=== PATIENT | female | born 1960 | race Caucasian/White ===

== ENCOUNTER 2018-12-25 08:35 | Outpatient (REF) | payer MEDICAID, SELFPAY ==
[2018-12-25 12:55] LABS: ALT 29 U/L (12-78); AST 20 U/L (15-37); Albumin 4.2 g/dL (3.4-5.0); Alkaline Phosphatase 92 U/L (46-116); Anion Gap 12.8 mmol/L (3-11); BUN 13 mg/dL (7-18); Bilirubin, Total 0.2 mg/dL (0.2-1.0); CO2 24.2 mmol/L (21.0-32.0); CREATININE 0.98 mg/dL (0.55-1.02); Calcium 9.4 mg/dL (8.5-10.1); Chloride 104 mmol/L (98-107); Cholesterol 207 mg/dL (50-200); Estimated GFR 57.89 (mL/min/1.73m2); Glucose 104 mg/dL (70-100); HDL Cholesterol 55 mg/dL (40-60); LDL CHOLESTEROL 113 mg/dL (<100); Potassium 4.2 mmol/L (3.5-5.1); Sodium 141 mmol/L (136-145); TSH (W/Ref FT4) 1.76 uIU/mL (0.358-3.74); Total Protein 7.6 g/dL (6.4-8.2); Triglyceride 200 mg/dL (30-150)
== END 2018-12-25 08:55 ==
LOC: NCHCN 08:35
PROVIDERS: PCP Nurse Practitioner; Visit Provider Nurse Practitioner
DX: E78.5 Hyperlipidemia, unspecified (principal); F32.9 Major depressive disorder, single episode, unspecified
CPT/HCPCS: 80053; 80061; 83721; 84443

== ENCOUNTER 2019-10-07 13:24 | Outpatient (REF) | payer MEDICAID, SELFPAY ==
[2019-10-07 19:18] LABS: ALT 26 U/L (14-59); AST 22 U/L (15-37); Albumin 4.6 g/dL (3.4-5.0); Alkaline Phosphatase 84 U/L (46-116); Anion Gap 11.3 mmol/L (3-11); BUN 9 mg/dL (7-18); Bilirubin, Total 0.3 mg/dL (0.2-1.0); CO2 27.7 mmol/L (21.0-32.0); CREATININE 1.06 mg/dL (0.55-1.02); Calcium 9.3 mg/dL (8.5-10.1); Calculated LDL 115 mg/dL; Chloride 101 mmol/L (98-107); Cholesterol 212 mg/dL (<200); Estimated GFR 52.88 (mL/min/1.73m2); Glucose 99 mg/dL (74-106); HDL Cholesterol 55 mg/dL (40-60); Potassium 3.9 mmol/L (3.5-5.1); Sodium 140 mmol/L (136-145); TSH (W/Ref FT4) 1.63 uIU/mL (0.36-3.74); Total Protein 7.8 g/dL (6.4-8.2); Triglyceride 213 mg/dL (<150)
[2019-10-07 19:33] LABS: Vitamin D 25 Total 37.4 ng/ml (30-100)
== END 2019-10-07 13:44 ==
LOC: NCHCN 13:24
PROVIDERS: PCP Nurse Practitioner; Visit Provider Nurse Practitioner
DX: E78.1 Pure hyperglyceridemia (principal); E55.9 Vitamin D deficiency, unspecified; E78.5 Hyperlipidemia, unspecified; Z13.29 Encounter for screening for other suspected endocrine disorder
CPT/HCPCS: 80053; 80061; 82306; 84443

== ENCOUNTER 2020-02-26 10:55 | Outpatient (CLI) | payer MEDICAID, SELFPAY ==
--- NOTE | 2020-02-26 09:00 | DI.RAD_ITS ---
EXAM: XR SHOULDER RT COMPLETE 2+V CLINICAL HISTORY: pain in shoulder. TECHNIQUE: 2D digital imaging was performed. COMPARISON: No exams were available for comparison FINDINGS: Mild degenerative changes are seen at the acromioclavicular joint. The glenohumeral joint is well ma intained. The bones are normally mineralized. No acute fracture or dislocation is present. Dystrop hic calcifications are seen adjacent to the coracoid process. The soft tissues are otherwise unremar kable. IMPRESSION: Degenerative changes of the right shoulder. DATA REPOSITORY: RADIATION DOSE DELIVERED:
== END 2020-02-26 11:15 ==
PROVIDERS: PCP Nurse Practitioner; Referring Provider Nurse Practitioner; Visit Provider Student in an Organized Health Care Education/Training Program
DX: M25.511 Pain in right shoulder (principal); M19.011 Primary osteoarthritis, right shoulder
CPT/HCPCS: 73030

== ENCOUNTER 2020-06-30 10:56 | Outpatient (CLI) | payer MEDICAID, SELFPAY ==
--- NOTE | 2020-06-30 14:00 | DI.RAD_ITS ---
EXAM: XR SHOULDER LT COMPLETE 2+V CLINICAL HISTORY: left shoulder pain. TECHNIQUE: 2D digital imaging was performed. COMPARISON: CR LEFT SHOULDER COMPLETE from 12/13/2016 FINDINGS: BONES: No acute fracture is present. No bony destructive lesion is seen. JOINTS: No dislocation present. There is mild spurring at the glenoid and undersurface of the acromi on. SOFT TISSUE: A rounded calcification is again near the greater tuberosity consistent with calcific te ndinosis. IMPRESSION: Stable mild degenerative changes and calcific tendinosis. DATA REPOSITORY: RADIATION DOSE DELIVERED:
== END 2020-06-30 11:16 ==
PROVIDERS: PCP Nurse Practitioner; Visit Provider Student in an Organized Health Care Education/Training Program
DX: M19.012 Primary osteoarthritis, left shoulder (principal); M75.32 Calcific tendinitis of left shoulder
CPT/HCPCS: 73030

== ENCOUNTER 2021-03-02 13:59 | Outpatient (CLI) | payer MEDICAID, SELFPAY ==
--- NOTE | 2021-03-02 18:15 | DI.RAD_ITS ---
Exam(s) XR HAND LT COMPLETE EXAM: XR HAND LT COMPLETE CLINICAL HISTORY: left wrist and hand closed in door, pain, injury. TECHNIQUE: 2D digital imaging was performed. COMPARISON: No exams were available for comparison FINDINGS: There is no evidence of fracture or dislocation. No osseous lesions. Tiny 1 millimeter calcificatio n is seen in the soft tissues dorsal to the DIP joint of the 2nd-index finger. Also degenerative paige nges at the articulation between the thumb metacarpal and trapezium, these best seen on the oblique v iews. IMPRESSION: DATA REPOSITORY: RADIATION DOSE DELIVERED:
--- NOTE | 2021-03-02 18:15 | DI.RAD_ITS ---
Exam(s) XR WRIST LT COMP NAVICULAR EXAM: XR WRIST LT COMP NAVICULAR CLINICAL HISTORY: wrist and hand closed in door, injury. TECHNIQUE: 2D digital imaging was performed. COMPARISON: No exams were available for comparison FINDINGS: There is no evidence of acute fracture or carpal dislocation. Scaphoid appears unremarkable. No sig nificant ulnar variance. There are moderate degenerative changes at the articulation between the keshia mb metacarpal and trapezium. IMPRESSION: DATA REPOSITORY: RADIATION DOSE DELIVERED:
--- NOTE | 2021-03-02 19:18 | DI.VRAD_ITS ---
PROCEDURE INFORMATION: Exam: XR Left Hand Exam date and time: 03/02/2021 6:18 PM Age: 60 years old Clinical indication: Other: Left wrist and hand closed in door, pain, injury TECHNIQUE: Imaging protocol: XR Left hand. Views: 3 or more views. COMPARISON: No relevant prior studies available. FINDINGS: Bones/joints: There is a linear lucency through the shaft the 1st distal phalanx (series 1) and through the base the 4th distal phalanx (series 3). These could represent variations in trabeculation but should be correlated with concern for nondisplaced fractures. Soft tissues: There is a punctate radiodensity in the soft tissues adjacent to the distal aspect of the 2nd proximal phalanx, ulnar side (series 1) . A 2nd punctate radiodensity is identified in the dorsal soft tissues at the level of the 2nd DIP joint (series 3). These could represent soft tissue calcifications but should be correlated with any concern for foreign bodies. IMPRESSION: 1. There is a linear lucency through the shaft the 1st distal phalanx (series 1) and through the base the 4th distal phalanx (series 3). These could represent variations in trabeculation but should be correlated with concern for nondisplaced fractures. 2. Punctate radiodensities in the 2nd digit as described. These could represent soft tissue calcifications but should be correlated with any concern for foreign bodies. Other findings/details as above. Dictated and Authenticated by: Leelee Mueller MD. Ordering:RADHA Howell MD
--- NOTE | 2021-03-02 19:24 | DI.VRAD_ITS ---
PROCEDURE INFORMATION: Exam: XR Left Wrist Exam date and time: 03/02/2021 6:18 PM Age: 60 years old Clinical indication: Other: Wrist and hand closed in door, injury TECHNIQUE: Imaging protocol: XR Left wrist. Views: 3 or more views. COMPARISON: No relevant prior studies available. FINDINGS: Bones/joints: Degenerative changes are noted at 1st carpometacarpal joint. Seen only on series 2 is a vertical linear lucency in the ulnar aspect of the trapezium. This is favored to be secondary to superimposition of structures but should be correlated with any concern for subtle nondisplaced fracture. Soft tissues: Unremarkable. IMPRESSION: 1.Seen only on series 2 is a vertical linear lucency in the ulnar aspect of the trapezium. This is favored to be secondary to superimposition of structures but should be correlated with any concern for subtle nondisplaced fracture. Dictated and Authenticated by: Leelee Mueller MD. Ordering:RADHA Howell MD
== END 2021-03-02 14:19 ==
PROVIDERS: PCP Nurse Practitioner; Visit Provider Physician Assistant
DX: S69.92XA Unspecified injury of left wrist, hand and finger(s), initial encounter (principal); W23.0XXA Caught, crushed, jammed, or pinched between moving objects, initial encounter
CPT/HCPCS: 73110; 73130

== ENCOUNTER 2021-03-15 01:47 | Outpatient (CLI) | payer MEDICAID, SELFPAY ==
--- NOTE | 2021-03-15 09:00 | DI.RAD_ITS ---
Exam(s) XR WRIST LT COMPLETE EXAM: XR WRIST LT COMPLETE CLINICAL HISTORY: 10 persistant pain, c/o nondisplac fx, pain, M25.532. TECHNIQUE: 2D digital imaging was performed. COMPARISON: Prior x-rays 03/02/2021 FINDINGS: No evidence of acute fracture or dislocation. No significant ulnar variance. Bone density is normal . There are degenerative changes at the articulation between the thumb metacarpal and trapezium agai n noted. IMPRESSION: No fracture evident. DATA REPOSITORY: RADIATION DOSE DELIVERED:
== END 2021-03-15 02:07 ==
PROVIDERS: PCP Nurse Practitioner; Visit Provider Physician Assistant
DX: M25.532 Pain in left wrist (principal)
CPT/HCPCS: 73110

== ENCOUNTER 2024-09-27 09:40 | Emergency (ER) | payer MEDICARE, MEDICAID, SELFPAY ==
[2024-09-27 09:42] VITALS: BP 177/97; PULSE 90; RESP 18; O2SAT 97
--- NOTE | 2024-09-27 10:15 | DI.RAD_ITS ---
Exam(s) XR FEMUR RT XR HIP RT COMPLETE AP PELVIS EXAM: XR HIP RT COMPLETE AP PELVIS and XR femur RT CLINICAL HISTORY: pain. TECHNIQUE: 2D digital imaging was performed of the right hip and femur. Six images were obtained. AP pelvis and lateral right hip views were obtained. COMPARISON: There are no priors for comparison. FINDINGS: BONES: No acute fracture is present. No bony destructive lesion is seen. JOINTS: No dislocation present. SOFT TISSUE: Atherosclerotic calcification is present. IMPRESSION: No acute fracture or dislocation. DATA REPOSITORY: RADIATION DOSE DELIVERED:
--- NOTE | 2024-09-27 10:19 | ED.GENADUL_ITS ---
Discharge Plan Disposition Patient Disposition: Home Condition: Stable Discharge Details Clinical Impression: Osteoarthritis of right hip Primary Care Provider: Unknown,Unknown ED Provider: James Grossman Home Meds and New Rx's Prescriptions: Continued ibuprofen 600 MG tablet 600 mg PO Q6H PRN Qty: 90 fluoxetine 20 MG capsule 20 mg PO QAM lovastatin 40 MG tablet 40 mg PO DAILY albuterol sulfate [ProAir HFA] 8.5 GM HFA aerosol inhaler 2 puff Inhalation QID PRN PRN (Reason: Dyspnea) Qty: 1 0RF gabapentin 100 MG capsule 100 mg PO BID cholecalciferol (vitamin D3) 1,000 UNIT tablet 1,000 unit PO DAILY Discharge Instructions Instructions: Osteoarthritis, Hip pain in adults Additional Instructions: No evidence of blood clot or bony lesion. Discomfort appears to be coming from your hip, likely osteoarthritis. You may continue NSAIDs as directed. Rest, gentle stretching, activity modification, cool and/or warm compresses every 2 hours for 20 minutes. You may also use [id number]-[id number] Tylenol. Please watch for new or worsening symptoms and return immediately to the ER. Referral has been given to her orthopedic office. They should be reaching out to you sometime next week, if you do not hear from them, please contact their office. Referrals: Ike Phelan MD [ [facility] STAFF PHYSICIAN] - [facility] General Mode of arrival: ambulatory . Date/Time Provider Initiated Documentation: 09/27/24 09:56 . Limitations to Documentation: no limitations . Information obtained by: patient . History of Present Illness 63 year old F presents to the emergency department with the chief complaint of Left leg pain, described as moderate, with intensity rated at 7. Quality is described as aching and sharp, and is localized to the left and lower extremity. Patient reports no radiation. Patient started experiencing this week(s) (1) and it has been constant. Immobilization improves symptom(s), Movement worsens sym ptoms . Patient notes no other symptoms.. Patient did receive the following treatments prior to arrival, NSAID Related Data Home Medications ?Medication ?Instructions ?Recorded ?Confirmed fluoxetine 20 mg capsule 20 mg PO QAM 10/15/13 09/27/24 albuterol sulfate 90 mcg/actuation 2 puff inhalation QID PRN PRN 06/04/15 09/27/24 aerosol inhaler (ProAir HFA) Dyspnea ##1 lovastatin 40 mg tablet 40 mg PO DAILY 06/04/15 09/27/24 ibuprofen 600 mg tablet 600 mg PO Q6H PRN #90 tab-caps 12/15/15 09/27/24 cholecalciferol (vitamin D3) 25 1,000 unit PO DAILY 04/02/18 09/27/24 mcg (1,000 unit) tablet gabapentin 100 mg capsule 100 mg PO BID 04/02/18 09/27/24 Previous Rx's ?Medication ?Instructions ?Recorded albuterol sulfate 90 mcg/actuation 2 puff inhalation QID PRN PRN 06/04/15 aerosol inhaler (ProAir HFA) Dyspnea ##1 Allergies Allergy/AdvReac Type Severity Reaction Status Date / Time No Known Allergies Allergy Verified 09/27/24 09:47 General Stated Complaint: Nk/Back Pain LUIS DANIEL: 4 Review of Systems Constitutional Constitutional: Denies chills and Denies fever(s) Cardiovascular Cardiovascular: Denies chest pain and Denies dyspnea Respiratory Respiratory: Denies cough and Denies dyspnea Gastrointestinal Gastrointestinal: Denies abdominal pain Musculoskeletal Musculoskeletal: Denies back pain, Denies numbness and Denies tingling Integumentary/Breasts Skin/Breast: Denies rash Neurologic Neurologic: Denies numbness and Denies tingling Exam Const General: cooperative, healthy appearing, comfortable and no acute distress Orientation: alert and awake [facility] Head: normal to inspection, normocephalic and atraumatic Mouth: moist mucous membranes Eyes General: appearance normal, both eyes and all related structures Conjunctivae: conjunctivae normal Neck Neck: normal visual inspection, full ROM, trachea midline and supple Resp Effort & Inspection: normal respiratory effort and able to speak in complete sentences Auscultation: clear to auscultation bilaterally Cardio Rate: regular rate Rhythm: regular rhythm GI Palpation: soft, not firm, no guarding and nontender Back/Spine/Pelvis Back: no CVA tenderness and No back tenderness Skin General skin exam: no rashes or lesions noted Neuro General: patient alert, patient awake, moves all extremities and no focal motor deficits Cognition: normal cognition Speech: speech normal Gait: antalgic (Minimally) Sensory Exam: no sensory deficits noted Extrem General: normal to inspection, full ROM, capillary refill normal and no calf tenderness Right lower extremity: normal to inspection, full ROM and normal capillary refill Other: Right hip exam: Skin is intact without erythema, ecchymosis, swelling, deformity. Patient able to actively flex their hip greater than 90 degrees with mild anterior discomfort. Pt able to demonstrate nonirritable and smooth internal and external rotation without discomfort. While seated, able to hold leg in hip flexion against light resistance without discomfort, mild discomfort to moderate resistance. No pain over the greater trochanter or IT band. Sensation is intact throughout. Straight leg raise elicits mild back discomfort as well as anterior hip and thigh discomfort. Stinchfield testing elicits moderate anterior hip and thigh discomfort. No Trendelenburg gait. No discomfort to direct palpation about the quad. Significant discomfort about the sciatic notch. Knee, calf, foot unremarkable. Calf is soft, nontender, easily compressed. Normal pedal pulse and capillary refill. Negative Homans' sign Psych Appearance: grossly normal Mental Status: mental status grossly normal Course Vital Signs Vital signs: Vital Signs Pulse 90 09/27/24 09:42 Respiratory Rate 18 09/27/24 09:42 Blood Pressure 177/97 H 09/27/24 09:42 Pulse Oximetry 97 09/27/24 09:42 Pulse 90 09/27/24 09:42 Respiratory Rate 18 09/27/24 09:42 Blood Pressure 177/97 H 09/27/24 09:42 Blood Pressure Position Sitting 09/27/24 09:42 Pulse Oximetry 97 09/27/24 09:42 Oxygen Delivery Method Room Air 09/27/24 09:42 Oxygen Flow Rate 0 09/27/24 09:42 Pain Level 5 09/27/24 09:58 Medical Decision Making This is a 63-year-old female reporting right thigh and hip pain that began about 1 week ago. Denies any obvious trauma or overuse. States the discomfort began more so in her thigh and was worse with movement and bearing weight, seem to radiate up to her anterior hip. Then about 3 or 4 days ago she noticed some discomfort about her deep right buttocks. States it feels somewhat muscular in nature. Has never had the symptoms previously. Patient has not had a PCP in over 3 years, does have transportation issues. I have asked that care management come speak with the patient regarding her resource help establish PCP. Examination is most consistent with right hip osteoarthritis. Will obtain x-rays of the right hip and femur and reassess. Care management did come talk with the patient regarding a PCP and additional community resources. Patient is very thankful. Right femur and hip x-rays were ordered and reviewed, no acute fracture, dislo cation, or bony lesions. Degenerative changes noted. Discussed in length with patient. Right hip pain which is described as anterior pain into her thigh as well as deep buttocks pain. Clinically no evidence of DVT. Neuro, vascular, tendon intact. No evidence of trochanteric bursitis. While there could be some component of ischial bursitis, testing appears more so intra-articular, consistent with osteoarthritis. Recommend orthopedic referral and follow-up, could consider intra-articular injection. In the meantime we discussed activity modification, continuing oral NSAIDs, gentle stretching, cool and/or warm compresses. Patient encouraged to watch for new or worsening symptoms and return immediately to the ER. Standard discharge and return precautions were provided. Patient understands, is agreeable to this plan, and has no additional questions or concerns upon discharge. This documentation was generated using [employer] dictation system, please disregard any oddities of phrase or misspellings. Medical Records Medical records reviewed: Yes I reviewed the patient's medical records. Quality:SDOH Health Related Social Needs: No Data to Display PFSH All Active Problems (Updated 09/27/24 @ 11:47 by BRIDGETT Garzon) Osteoarthritis of right hip (Acute) Calcific tendinitis of left shoulder (Acute) Bilateral shoulder bursitis (Acute) Tendinopathy of left biceps (Acute) No-show for appointment (Acute) Tendinitis of long head of biceps brachii of both shoulders (Acute) Medical History Adhesive capsulitis of right shoulder Impingement syndrome of right shoulder Bursitis of right shoulder Social History Smoking/Tobacco Use Status: Current every day Smoking risk assessment performed?: Yes Alcohol Intake: never Drug use: Occasionally Substance use type: marijuana Details: Pt states she smokes marijuana occasionally 09/27/24 Current gender identity: female Do you feel safe at home: Yes Do you feel safe in your relationship?: Yes
[2024-09-27 11:58] VITALS: BP 172/80; PULSE 73; RESP 16; O2SAT 98
--- NOTE | 2024-09-27 13:23 | CMPROGNOTE_ITS ---
Date of service: 09/27/24 Time of Service: 13:30 Care Management Progress Note Progress Note Text Progress Note Text: CM met with Bernice in the ED, at the provider's request. She presented for pain in her leg, and stated that she is concerned for a DVT. CM was engaged due to barriers with transportation, which has prevented her from remaining established with a PCP. Bernice was sitting up on the bed in the ED room when CM met with her. She was pleasant and engaged well in conversation. She stated that she had covid a few years ago, and has been experiencing symptoms since then, including a 60 pound weight loss (in three years), which was unintentional. She stated that she lives in a single family home in [place] [facility] [place] (near [place]) that she and her , Bryan, rent equipment operator intermodal yard. She reported that their son, Guillermo, has been staying with them recently. They have three children; Guillermo, Ann, and another son whom she stated is not close with her. She stated that her is not nice, and further explained that is verbally mean, but not physica lly. CM asked about her safety at home, and she reported that she feels safe, and declined additional support, stating that he has been like this for several years, which she attributes to a new medication he has been taking. Bernice stated that her has a vehicle, but that he is not always able to drive her to appointments. He works seasonally (December-June), and that she tried to make her appointments during the winter months, but she has missed too many, so now she is no longer an established patient at [facility]. She stated that [facility] will not provide free rides because there is a car registered to their home. Bernice reported that when she was seeing her PCP regularly, she was taking an anti depressant, which she felt was helpful. She does not have a therapist currently, but is interested in one, as she stated that she feels isolated at home, and expressed gratitude for having someone to talk with today. GONZALEZ sent referrals to [facility] and [facility] to help connect Bernice to services in the community. A referral was sent to the rn on site provider for a hospital follow up appointment, at which she can elect to establish care. GONZALEZ discussed these referrals with Bernice, who was happy to have the support, as she feels it is important to start prioritizing herself. Social Determinants of Health Screening Will the Patient Participate in the Screening?: Unable to obtain
== END 2024-09-27 12:00 | disposition home or self-care (01) ==
PROVIDERS: Emergency Provider Physician Assistant
DX: M79.604 Pain in right leg (principal); M16.11 Unilateral primary osteoarthritis, right hip
CPT/HCPCS: 73552; 99284; 73502; 99283

== ENCOUNTER 2024-11-13 14:27 | Emergency (ER) | payer MEDICARE, MEDICAID, SELFPAY ==
[2024-11-13 14:51] VITALS: BP 128/68; PULSE 70; RESP 20; TEMP 37.1; O2SAT 95
--- NOTE | 2024-11-13 15:30 | DI.RAD_ITS ---
Exam(s) XR CHEST 2V PA LATERAL EXAM: XR CHEST 2V PA LATERAL CLINICAL HISTORY: Eval PNA, productive cough TECHNIQUE: 2D digital imaging was performed of the chest. Two images were obtained. PA and lateral views were obtained. COMPARISON: CR CHEST 2 VIEWS PA,LAT from 06/04/2015 CR LEFT SHOULDER COMPLETE from 12/13/2016 FINDINGS: MEDIASTINUM: Normal. HEART: Normal. PULMONARY VASCULATURE: Normal. LUNGS: No focal consolidating infiltrates are present. PLEURAL SPACE: No pleural effusion or pneumothorax. BONE:Within normal limits for the patient's age. OTHER FINDINGS:Normal. IMPRESSION: No acute pulmonary findings. DATA REPOSITORY: RADIATION DOSE DELIVERED:
--- NOTE | 2024-11-13 16:39 | ED.GENADUL_ITS ---
Discharge Plan Disposition Patient Disposition: Home Condition: Stable Discharge Details Clinical Impression: URI (upper respiratory infection) Primary Care Provider: Unknown,Unknown ED Provider: Elizabeth Espinosa Home Meds and New Rx's Prescriptions: New benzonatate 100 mg capsule 100 mg PO TID PRNQty: 14 0RF Discharge Instructions Instructions: Viral Upper Respiratory Infection, Adult (DC) Additional Instructions: You were seen in the emergency department today for evaluation of shortness of breath and cough. In our department you do full physical examination performed, had an x-ray that did not show any sign of pneumonia or other abnormalities to explain your symptoms. As we discussed, your symptoms are most concerning for influenza, especially since your family was sick with this virus a few weeks ago. Unfortunately, the medication that we use for influenza should be started within 2 days of symptoms, and as you have been sick for about a week it is li rafi not to have any significant benefit. I do recommend that you continue to use Tylenol (also known as acetaminophen) and ibuprofen for management of bodyaches, and I prescribed you a course of medication called Tessalon Perles which you can use for cough. Please follow-up with your primary care provider in the next few days to discuss this visit and any symptoms that change, worsen, or persist. Thank you for allowing us to be part of your care. HPI General Mode of arrival: ambulatory . Date/Time Provider Initiated Documentation: 11/13/24 15:21 . Limitations to Documentation: no limitations . Information obtained by: patient, family and old records reviewed . HPI Narrative: HPI: This is a 63-year-old female patient without significant past medical history presenting for evaluation of shortness of breath and cough. The patient has been sick for 1 week, her son and were both sick with influenza A a few weeks ago and she is concerned that she caught that from them. She states that she had been using [id number]-[id number] cough syrup to good effect for the first few days, but has developed worsening cough productive of clear to white sputum, shortness of breath especially after coughing or with exertion, and bodyaches. She sought care at the urgent care, who heard some crackles in her left base and were concerned for pneumonia. She was sent here for further evaluation. The patient reports that she has not had a fever, has been tolerating fluids but has not had much of an appetite. She has no personal history of cardiac disease, airway disease. Exam: Gen: Awake and alert, in no apparent distress HEENT: Non-icteric sclera Neck: Supple Lungs: No apparent respiratory distress at rest, does have some transient tachypnea after coughing spells. Lung sounds clear and equal bilaterally, no wheezes, rhonchi, rales CV: Appears well perfused, heart with regular rate and rhythm Abdomen: Non-distended MSK: Moves 4 extremities without apparent limitation in ROM, no peripheral edema Skin: Visualized skin without rashes, cyanosis. Neuro: Normal Gait, no obvious focal deficits or facial asymmetry. Speaks in full, clear sentences. Psych: Appropriate for situation. MDM: This is a 63-year-old female patient presenting for evaluation of cough and bodyaches with shortness of breath. Differential includes but is not limited to viral upper respiratory infection, bronchitis, pneumonia, no evidence on physical examination for reactive airway disease exacerbation, fluid overload such as pulmonary edema or pleural effusion. The patient symptoms are quite infectious sounding, and less typical for pulmonary embolism. She also reassuringly has no tachycardia, hypoxia, or DVT symptoms. No chest pain to suggest ACS. We will obtain an x-ray. At this time I do not see indication to proceed with laboratory studies given her hemodynamic stability and her ability to tolerate oral liquids ED Course: X-ray reviewed by myself, showing no focal infiltrates or other concerning findings to explain her symptoms. Given the duration of symptoms I did offer the patient the choice of proceeding with viral swab, and at this time she would like to hold off given her clear exposure history and the lack of treatment options available given the duration of symptoms. I did provide her with a prescription for Tessalon Perles, recommended Tylenol and ibuprofen for ongoing symptomatic management, and follow-up with her primary care provider for reassessment in the outpatient environment. At this time, the patient has had a full medical evaluation and is safe for discharge to home. They are hemodynamically stable, ambulatory, and tolerating PO. They are understanding of the follow-up plan and return precautions. They left our facility without incident. Elizabeth Espinosa MD Related Data Home Medications ?Medication ?Instructions ?Recorded ?Confirmed benzonatate 100 mg capsule 100 mg PO TID PRN #14 caps 11/13/24 Previous Rx's ?Medication ?Instructions ?Recorded benzonatate 100 mg capsule 100 mg PO TID PRN #14 caps 11/13/24 Allergies Allergy/AdvReac Type Severity Reaction Status Date / Time No Known Allergies Allergy Verified 11/13/24 14:55 General Stated Complaint: RespSymp LUIS DANIEL: 4 Course Vital Signs Vital signs: Vital Signs Temperature 37.1 C 11/13/24 14:51 Pulse 70 11/13/24 14:51 Respiratory Rate 20 11/13/24 14:51 Blood Pressure 128/68 11/13/24 14:51 Pulse Oximetry 95 11/13/24 14:51 Temperature 37.1 C 11/13/24 14:51 Temperature Source Oral 11/13/24 14:51 Pulse 70 11/13/24 14:51 Respiratory Rate 20 11/13/24 14:51 Blood Pressure 128/68 11/13/24 14:51 Blood Pressure Position Sitting 11/13/24 14:51 Pulse Oximetry 95 11/13/24 14:51 Oxygen Delivery Method Room Air 11/13/24 14:51 Oxygen Flow Rate 0 11/13/24 14:51 Pain Level 10 11/13/24 14:51 Medical Decision Making Quality:SDOH Health Related Social Needs: No Data to Display PFSH All Active Problems (Updated 11/13/24 @ 16:40 by Elizabeth Espinosa MD) URI (upper respiratory infection) (Acute) Calcific tendinitis of left shoulder (Acute) Bilateral shoulder bursitis (Acute) Tendinopathy of left biceps (Acute) No-show for appointment (Acute) Tendinitis of long head of biceps brachii of both shoulders (Acute) Medical History Adhesive capsulitis of right shoulder Impingement syndrome of right shoulder Bursitis of right shoulder Social History Smoking/Tobacco Use Status: Current every day Smoking risk assessment performed?: Yes Alcohol Intake: never Drug use: Occasionally Substance use type: marijuana Details: Pt states she smokes marijuana occasionally 09/27/24 Current gender identity: female Do you feel safe at home: Yes Do you feel safe in your relationship?: Yes
== END 2024-11-13 17:02 | disposition home or self-care (01) ==
PROVIDERS: Emergency Provider Emergency Medicine
DX: J06.9 Acute upper respiratory infection, unspecified (principal)
CPT/HCPCS: 99283; 71046

== ENCOUNTER 2025-01-13 00:06 | Outpatient (CLI) | payer MEDICARE, MEDICAID, SELFPAY ==
--- NOTE | 2025-01-13 08:41 | DI.CTLCSR_ITS ---
Exam(s) CT CHEST LUNG CANCER SCREEN EXAM: CT CHEST LUNG CANCER SCREEN CLINICAL HISTORY: Screening for lung cancer,cigarette smoker, F17.210 TECHNIQUE: Imaging Protocol: Axial computed tomography images with coronal and sagittal reformatted images were created and reviewed. Lung Computer Aided Detection (CAD) was utilized. COMPARISON: CT ABD PELVIS WITH CONTRAST from 05/02/2010 CR XR CHEST 2V PA LATERAL from 11/13/2024 FINDINGS: Tracheobronchial tree: Patent where visualized. No bronchiectasis. Pulmonary parenchyma: No consolidation or dominant measurable mass. No architectural distortion. Ther e is a calcified granuloma in the right lower lobe. Lung Nodules: There is a 5 mm nodule in the medial aspect of the right lower lobe. Mediastinum and Malia: No dominant adenopathy or fluid collection. The esophagus is unremarkable. Thyroid gland: Unremarkable. Lymph nodes: Unremarkable. Pleura: No effusion or pneumothorax. Heart: The heart is not dilated. Single-vessel coronary artery calcification is present. No pericard ial effusion. Aorta: The ascending thoracic aorta measures 3.8 x 3.8 cm. Atherosclerotic calcification is present . Upper abdomen: Unremarkable. Soft Tissues: Unremarkable. Bones: Within normal limits. IMPRESSION: 5 mm right lower lobe pulmonary nodule. Lung RADS Cat 3 - Probably Benign: Probably benign finding(s) - short term follow-up suggested; inclu de nodules with a low likelihood of becoming a clinically active cancer. Lung-RADS 1.0 CATEGORIES: Category 0 - Prior chest CT exam(s) being located for comparison. Category 1 - Annual screening in 12 months. No nodules or definitely benign nodules. Category 2 - Annual screening in 12 months. Benign appearance. Nodules with low likelihood of becomin g active cancer. Category 3 - 6-month follow-up. Probably benign. Short-term follow-up suggested. Nodules with low lik elihood of becoming active cancer. Category 4A - 3-month follow-up and CT/PET if >8 mm in size. Suspicious finding. Findings which requi re additional testing. Category 4B - Findings which require additional testing and tissue sampling. Suspicious finding. Category 4X - Category 3 or 4 nodules with additional features or imaging findings that increases the suspicion of malignancy. Modifier S- Potentially clinically significant finding. (Non lung cancer) RADIATION DOSE DELIVERED: 22.92mGy.cm Total DLP 22.92mGy.cmTotal DLP DATA REPOSITORY: All CT scans at this facility are submitted to the National Radiology Data Registry (NRDR) Dose Index Registry (DIR) with the [employer] ([employer]). RADIATION OPTIMIZATION: All CT scans at this facility use at least one of these dose optimization te chniques: automated exposure control; mA and/or kV adjustment per patient size (includes targeted exa ms where dose is matched to clinical indication); or iterative reconstruction.
[2025-01-13 09:13] LABS: Abs Immature Grans 0.03 10^3/uL (0.0-0.06); Absolute Basophil Count 0.05 10^3/uL (0.0-0.2); Absolute Eosinophil Count 0.05 10^3/uL (0.0-0.7); Absolute Lymphocyte Count 3.48 10^3/uL (1.2-3.4); Absolute Monocyte Count 0.43 10^3/uL (0.1-0.8); Absolute Neutrophil Count 3.69 10^3/uL (1.2-6.7); Basophils % 0.6 %; Eosinophils % 0.6 %; HCT 37.5 % (36.0-46.0); HGB 12.3 g/dL (11.2-15.7); Immature Grans % 0.4 %; MCH 29.8 pg (27.0-33.0); MCHC 32.8 % (32.0-36.0); MCV 91 fL (80-95); MPV 9.8 fL (8.0-11.0); Monocytes % 5.6 %; Neutrophils % 47.8 %; Platelet Count 221 10^3/uL (130-400); RBC 4.13 10^6/uL (3.93-5.22); RDW 13.7 % (11.7-14.6); RDW-SD 46.3 fL; WBC 7.73 10^3/uL (4.4-10.8)
[2025-01-13 09:49] LABS: Hemoglobin A1C 5.8 % (<5.7)
[2025-01-13 10:10] LABS: ALT 19 U/L (14-59); AST 21 U/L (15-37); Albumin 4.6 g/dL (3.4-5.0); Alkaline Phosphatase 72 U/L (46-116); Anion Gap 12.2 mmol/L (3-11); BUN 10 mg/dL (7-18); Bilirubin, Total 0.4 mg/dL (0.2-1.0); CO2 25.8 mmol/L (21.0-32.0); CREATININE 0.8 mg/dL (0.55-1.02); Calcium 9.6 mg/dL (8.5-10.1); Calculated LDL 87 mg/dL (<100); Chloride 100 mmol/L (98-107); Cholesterol 195 mg/dL (<200); Estimated GFR 81.21 (mL/min/1.73m2); Glucose 103 mg/dL (74-106); HDL Cholesterol 89 mg/dL (>or=50); Potassium 3.3 mmol/L (3.5-5.1); Sodium 138 mmol/L (136-145); TSH (W/Ref FT4) 1.88 uIU/mL (0.36-3.74); Total Protein 8.3 g/dL (6.4-8.2); Triglyceride 95 mg/dL (<150); Vitamin D 25 Total 14 ng/mL (30-100)
[2025-01-14 09:53] LABS: Hepatitis C Ab w Rflx HCV PCR Negative (Negative)
[2025-01-14 09:54] LABS: HBs Antibody, Quant <3.1 mIU/mL (See Note); Hep B Surface Ab Negative (See Note); Hepatitis B Core Antibody Negative (Negative); Hepatitis B Surface Antigen Negative (Negative)
[2025-01-14 10:17] LABS: HIV-1/2 Ag & Ab Screen Negative (Negative)
== END 2025-01-13 00:26 ==
LOC: DI 00:06
PROVIDERS: PCP Nurse Practitioner Family; Visit Provider Nurse Practitioner Family
DX: F17.210 Nicotine dependence, cigarettes, uncomplicated (principal); Z11.4 Encounter for screening for human immunodeficiency virus [HIV]; E55.9 Vitamin D deficiency, unspecified; R63.4 Abnormal weight loss; E78.5 Hyperlipidemia, unspecified; Z11.59 Encounter for screening for other viral diseases; R73.03 Prediabetes; Z12.2 Encounter for screening for malignant neoplasm of respiratory organs
CPT/HCPCS: 36415; 71271; 80053; 80061; 82306; 86704; 86706; 86803; 87340; 87389; 83036; 84443; 85025

== ENCOUNTER → 2025-02-26 12:53 | Outpatient (BNVA) | payer MEDICARE, MEDICAID, SELFPAY | PROVIDERS: PCP Nurse Practitioner Family; Referring Provider Nurse Practitioner Family; Visit Provider Podiatrist | DX: B35.1 Tinea unguium (principal); L60.3 Nail dystrophy; L60.2 Onychogryphosis; M79.674 Pain in right toe(s); M79.675 Pain in left toe(s); L65.9 Nonscarring hair loss, unspecified; L60.8 Other nail disorders | CPT/HCPCS: 99213; 11720 ==

== ENCOUNTER 2025-05-02 10:30 | Outpatient (CLI) | payer MEDICARE, MEDICAID, SELFPAY ==
[2025-05-02 14:47] LABS: Anion Gap 13.1 mmol/L (3-11); BUN 14 mg/dL (7-18); CO2 23.9 mmol/L (21.0-32.0); Calcium 9.3 mg/dL (8.5-10.1); Chloride 99 mmol/L (98-107); Estimated GFR 70.51 (mL/min/1.73m2); Glucose 91 mg/dL (74-106); Potassium 4.3 mmol/L (3.5-5.1); Sodium 136 mmol/L (136-145); Vitamin D 25 Total 37 ng/mL (30-100)
== END 2025-05-02 10:31 | disposition home or self-care (01) ==
PROVIDERS: PCP Nurse Practitioner Family; Visit Provider Nurse Practitioner Family
DX: E55.9 Vitamin D deficiency, unspecified (principal); I10 Essential (primary) hypertension
CPT/HCPCS: 36415; 80048; 82306

== ENCOUNTER 2025-07-16 01:08 | Outpatient (CLI) | payer MEDICARE, SELFPAY ==
--- NOTE | 2025-07-16 08:41 | DI.CT_ITS ---
Exam(s) CT CHEST WO EXAM: CT CHEST WO CLINICAL HISTORY: f/u on 5mm RLL pulmonary nodule,R91.1. TECHNIQUE: Multi planar reconstructions were performed. CONTRAST MATERIAL: None COMPARISON: CT CT CHEST LUNG CANCER SCREEN from 01/13/2025 FINDINGS: CHEST: LUNGS: No new left lung findings. There is a 3-4 millimeter fissure related nodule in the right lung again noted, unchanged. There is also a nodule just above the right hemidiaphragm in the right lower lobe unchanged, measuring 5 mm. There is also a pleural based tiny calcified granuloma in the medial right lower lobe. There is also pleural based medially located right lower lobe nodule measuring 5 mm, unchanged. MEDIASTINUM: There is no obvious hilar nor mediastinal adenopathy. Visualized thyroid unremarkable.No obvious axillary adenopathy CARDIAC: Heart size is normal. There is no pericardial effusion.Caliber of the thoracic aorta is within normal limits. VISUALIZED UPPER ABDOMEN:No adrenal masses. OSSEOUS: No significant osseous lesions.No fractures. IMPRESSION: 1. Stable 3 small right lung nodules which are unchanged from CT scan of 01/13/2025. Recommend repeat CT scan in 6 months to further ensure stability 2. No new left lung findings. 3. No pleural effusions nor intrathoracic adenopathy. RADIATION DOSE DELIVERED: 130.05mGy.cm Total DLP DATA REPOSITORY: All CT scans at this facility are submitted to the National Radiology Data Registry (NRDR) Dose Index Registry (DIR) with the [employer] (ACR). RADIATION OPTIMIZATION: All CT scans at this facility use at least one of these dose optimization techniques: automated exposure control; mA and/or kV adjustment per patient size (includes targeted exams where dose is matched to clinical indication); or iterative reconstruction.
== END 2025-07-16 01:28 ==
LOC: DI 01:18
PROVIDERS: PCP Nurse Practitioner Family; Visit Provider Nurse Practitioner Family
DX: R91.1 Solitary pulmonary nodule (principal)
CPT/HCPCS: 71250

== ENCOUNTER 2025-07-29 11:22 | Emergency (ER) | payer MEDICARE, SELFPAY ==
[2025-07-29 11:25] VITALS: BP 175/110; PULSE 59; RESP 18; TEMP 36.7; O2SAT 97
--- NOTE | 2025-07-29 12:06 | DI.RAD_ITS ---
Exam(s) XR HIP LT COMPLETE AP PELVIS EXAM: XR HIP LT COMPLETE AP PELVIS CLINICAL HISTORY: L hip pain. TECHNIQUE: 2D digital imaging was performed. COMPARISON: CR XR HIP RT COMPLETE AP PELVIS from 09/27/2024 FINDINGS: Two views No evidence of pelvic nor hip fracture. There are mild degenerative changes in the left hip. Bone density normal. No osseous lesions. IMPRESSION: No acute osseous findings in the pelvis and hips. DATA REPOSITORY: RADIATION DOSE DELIVERED:
--- NOTE | 2025-07-29 12:25 | ED.GENADUL_ITS ---
Discharge Plan Disposition Patient Disposition: Home Condition: Stable Discharge Details Clinical Impression: Left hip pain Primary Care Provider: Daksha Strauss ED Provider: Blade Boyd Home Meds and New Rx's Prescriptions: New ketorolac 10 mg tablet 10 mg PO QID 5 Days Qty: 20 0RF Rx Instructions: maximum total duration of 5 days from all oral, intranasal, or parenteral for mulations methocarbamol 750 mg tablet 750 mg PO QID Qty: 30 0RF No Action losartan 50 mg tablet 50 mg PO DAILY Qty: 90 3RF albuterol sulfate 90 mcg/actuation HFA aerosol inhaler 2 puff inhalation Q6H PRN (Reason: shortness of breath or wheezing) Qty: 8.5 3RF ketoconazole 2 % cream 1 applic topical DAILY Qty: 120 6RF Rx Instructions: Apply to toenails once daily sertraline 25 mg tablet 75 mg PO DAILY Qty: 270 3RF cholecalciferol (vitamin D3) 50 mcg (2,000 unit) capsule 2,000 unit PO DAILY Qty: 90 3RF Rx Instructions: Take 1 daily after the 8 weeks of the 50,000unit dose Discharge Instructions Instructions: Ketorolac (Systemic), Methocarbamol, Hip Pain ED Additional Instructions: You were seen in the emergency department for your left hip pain this may be coming from your lower back but 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 Take 1000 mg of Tylenol every 8 hours or so, use the prescription strength ketorolac for anti-inflammatory effects for 5 days and then use Motrin or ibuprofen in its place. Use the methocarbamol I have prescribed for skeletal muscle relaxation. Purchase [id number] Voltaren gel to apply to areas of pain. Follow-up with orthopedics for failure to improve, return to the emergency department for any emergent concerns. Stand Alone Forms: Portal Information Referrals: [facility] [Provider Group] Daksha Strauss NP [Primary Care Provider, Medicine] Discharge Data Discharge Date/Time-TO BE ENTERED AT DEPARTURE: 07/29/25 12:56 HPI General Date/Time Provider Initiated Documentation: 07/29/25 11:35 . HPI Narrative: 64 year-old female presents to ED today by POV/ambulating with a chief complaint of left hip pain with onset 1 week ago. Quality described as left hip and low back pain sometimes shoots down her leg, no radiation to bowel or urinary changes, trauma, numbness to genitals, abdominal pain. Severity is described as moderate. Palliating factors include nothing attempted. Provoking factors include ambulation. Patient not anticoagulated. Related Data Home Medications Medication Instructions Recorded Confirmed cholecalciferol (vitamin D3) 50 2,000 unit PO DAILY #9 0 caps 01/17/25 07/29/25 mcg (2,000 unit) capsule ketoconazole 2 % topical cream 1 applic topical DAILY #120 grams 02/26/25 07/29/25 albuterol sulfate 90 mcg/actuation 2 puff inhalation Q 6H PRN 05/02/25 07/29/25 aerosol inhaler shortness of breath or wheez ing #8.5 grams losartan 50 mg tablet 50 mg PO DAILY #90 tabs 04/1807/29/25 sertraline 25 mg tablet 75 mg (3 x 25 mg) PO DAILY # 270 06/04/25 07/29/25 tabs ketorolac 10 mg tablet 10 mg PO QID 5 days #20 tabs 07/29/25 methocarbamol 750 mg tablet 750 mg PO QID #30 tabs 08/12 Previous Rx's Medication Instructions Recorded cholecalciferol (vitamin D3) 50 2,000 unit PO DAILY #9 0 caps 01/17/25 mcg (2,000 unit) capsule ketoconazole 2 % topical cream 1 applic topical DAILY #120 grams 02/26/25 albuterol sulfate 90 mcg/actuation 2 puff inhalation Q 6H PRN 05/02/25 aerosol inhaler shortness of breath or wheez ing #8.5 grams losartan 50 mg tablet 50 mg PO DAILY #90 tabs 04/18 02/09 sertraline 25 mg tablet 75 mg (3 x 25 mg) PO DAILY # 270 06/04/25 tabs ketorolac 10 mg tablet 10 mg PO QID 5 days #20 tabs 07/29/25 methocarbamol 750 mg tablet 750 mg PO QID #30 tabs 08/12 Allergies Allergy/AdvReac Type Severity Reaction Status Date / Time No Known Allergies Allergy Verified 07/29/25 11:30 General Stated Complaint: Orthopedic LUIS DANIEL: 3 Review of Systems All systems reviewed & are unremarkable except as noted in HPI and below Exam Narrative Exam Narrative: GENERAL APPEARANCE: Well-nourished, non-toxic, awake and alert, atraumatic, no acute distress. SKIN: Warm, pink, dry, intact, without rashes/lesions/ulcerations. HEAD: Normocephalic, atraumatic, normal hair distribution for gender/age. EYES: Normal conjunctiva, no exudates on lids/lashes. ENT: Nares patent, no circumoral cyanosis, no facial swelling NECK: Supple, trachea midline, painless cervical ROM. LUNGS/CHEST: Non-labored respirations, normal A/P diameter, symmetrical expansion, no chest wall deformity HEART (CV/PV): No peripheral edema, no JVD. ABDOMEN: Soft, non-distended, no guarding. MSK: Normal ROM, no swelling/deformity to bilateral UEs or LEs, moving all extremities without weakness, no cyanosis, spine midline without tenderness, normal curvature, left paraspinal lumbar tenderness left hip pain mild without crepitus or swelling or skin changes NEURO: Mental Status AAOx4 - alert to person, place, time, events No facial droop, no forehead involvement. Motor: No focal weakness - strength 5/5 in bilateral UEs and LEs, proximal and distal, symmetric. Sensory: sensation intact to light touch globally. Gait normal: patient ambulated without ataxia into ED room. PSYCH: euthymic, cooperative, pleasant, appropriate speech Course Vital Signs Vital signs: Vital Signs Temperature 36.7 C 07/29/25 11:25 Pulse 59 L 07/29/25 11:25 Respiratory Rate 18 07/29/25 11:25 Blood Pressure 175/110 H 07/29/25 11:25 Pulse Oximetry 97 07/29/25 11:25 Temperature 36.7 C 07/29/25 11:25 Temperature Source Temporal Artery Scan 07/29/25 11:25 Pulse 59 L 07/29/25 11:25 Respiratory Rate 18 07/29/25 11:25 Blood Pressure 175/110 H 07/29/25 11:25 Pulse Oximetry 97 07/29/25 11:25 Pain Level 10 07/29/25 11:25 Medical Decision Making This dictation utilizes yifna-cy-iqow dictation software and may contain unedited grammatical errors. 64 year-old female presents to ED today by POV/ambulating with a chief complaint of left hip pain with onset 1 week ago. Quality described as left hip and low back pain sometimes shoots down her leg, no radiation to bowel or urinary changes, trauma, numbness to genitals, abdominal pain. Severity is described as moderate. Palliating factors include nothing attempted. Provoking factors include ambulation. Patients' medical history: Noncontributory. Family and social history: Noncontributory. Pertinent exam findings / vital signs include left hip tenderness without crepitus, left lower lumbar paraspinal tenderness, neurovascularly intact bilateral lower extremities. Differential / pathologies of concern include sciatica, arthritis, hip pain. Diagnostic studies of: - X-ray left hip with AP pelvis. Interventions of: - 1 g p.o. Tylenol, Lidoderm topical. ED Course/Assessment/Plan: 64-year-old female presents with left hip pain, also has low back pain, has neurovascular intact bilateral lower extremities, no acute fracture seen on hip x-rays and there are mild degenerative changes, counseled her on adequate dosing of Tylenol and ibuprofen and following up with orthopedics for specialist evaluation or attending physical therapy visits, counseled on regular use of Lidoderm patch on lower back, sent her prescription for Toradol as well as methocarbamol for skeletal muscle relaxation to hopefully relieve some radicular symptoms, strict return criteria for any bowel or urinary changes, numbness to genitals. Findings not consistent with trauma, cauda equina, fracture, neurovascular compromise. Disposition of left hip pain. Patient verbalized understanding of the plan and return to ED criteria and engaged in shared decision making. Medical Records Medical records reviewed: Yes I reviewed the patient's medical records. Imaging Data Radiologic Study: Attestation: I personally reviewed and interpreted this imaging study as follows: Imaging: X-Ray Radiologist's impression: EXAM: XR HIP LT COMPLETE AP PELVIS CLINICAL HISTORY: L hip pain. TECHNIQUE: 2D digital imaging was performed. COMPARISON: CR XR HIP RT COMPLETE AP PELVIS from 09/27/2024 FINDINGS: Two views No evidence of pelvic nor hip fracture. There are mild degenerative changes in the left hip. Bone density normal. No osseous lesions. IMPRESSION: No acute osseous findings in the pelvis and hips. Quality:SDOH Health Related Social Needs: Health related social needs inadequate housing transpo insecurity material hardship house/econ circumstance daily activities lonely/isolated PFSH All Active Problems (Updated 07/29/25 @ 12:34 by BRIDGETT Daniel) Left hip pain (Acute) Lung nodule (Acute) 5 mm right lower lobe pulmonary nodule December 2024, repeat June 2025 Hypertension (Chronic) Hyperlipidemia (Chronic) Major depressive disorder (Chronic) Generalized anxiety disorder (Chronic) Unintentional weight loss (Chronic) Long COVID (Chronic) Vitamin D deficiency (Chronic) Prediabetes (Chronic) Cigarette smoker (Chronic) Onychomycosis (Acute) Dystrophia unguium (Acute) Onychogryphosis (Acute) Pain due to onychomycosis of toenails of both feet (Acute) Surgical History S/P wrist surgery right Family History Mother Depression Diabetes Father Stroke Brother No problems noted. Brother No problems noted. Sister , in childbirth Congenital heart defect Sister No problems noted. Son No problems noted. Son No problems noted. Daughter Diabetes Adopted Maternal Grandfather Throat cancer Maternal Grandmother No problems noted. Paternal Grandfather No problems noted. Paternal Grandmother No problems noted. Social History Smoking/Tobacco Use Status: Current every day Tobacco Type: cigarettes Smoking packs per day: 0.75 Smoking cigarettes per day: 15.0 Years smoked: 48 Smoking pack-years: 36.00 Tobacco: How many years used: 48 Quit status: not considering quitting Second Hand Exposure: Yes Smoking risk assessment performed?: Yes Alcohol Intake: never Drug use: Socially Substance use type: marijuana Details: Pt states she smokes marijuana occasionally 09/27/24 Adopted: No Caregiver/Support person: No Household members: spouse Housing: house Number of Children: 3 number of grandchildren: 1 Communication Needs: Corrective Lenses Education Level: high school Details: 11th grade Do you need help understanding health information?: Rarely current occupation: Homemaker Sexually active: No Do you think of yourself as: straight/heterosexual Current gender identity: female What is your relationship status?: How often do you talk on the phone with friends or family?: once per week How often do you get together with friends or relatives?: decline to answer How often do you attend oriental orthodox or nondenominational services?: decline to answer Do you belong to any clubs or organized social groups?: no Panel score (0-1 are the most socially isolated patients): 1 NHANES result reviewed/action taken: Yes What type of physical activity do you participate in: decline to answer Duration: decline to answer Frequency: decline to answer Magali/Episcopal: Latter-Day Special magali needs: No Seatbelt use: always Helmet use: Yes Helmet use: always Drive intox or ride w/intox 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
[2025-07-29] MEDS: Acetaminophen 500 MG TAB 1000 MG PO (12:45)
[2025-07-29] MEDS: Lidocaine 5% Patch 1 PATCH TP (12:45)
== END 2025-07-29 12:56 | disposition home or self-care (01) ==
PROVIDERS: Emergency Provider Physician Assistant; PCP Nurse Practitioner Family
DX: M25.552 Pain in left hip (principal)
CPT/HCPCS: 99283 ×2; 73502

== ENCOUNTER → 2025-08-13 01:24 | Outpatient (CLI) | payer MEDICARE, SELFPAY ==
--- NOTE | 2025-08-13 11:21 | DI.RAD_ITS ---
Exam(s) XR LUMBAR SPINE COMPLETE EXAM: XR LUMBAR SPINE COMPLETE CLINICAL HISTORY: lumbar radiculopathy, acute, M54.16. TECHNIQUE: 2D digital imaging was performed of the lumbar spine. Five images were obtained. AP, lateral, right oblique, left oblique and L5-S1 spot views were obtained. COMPARISON: CR SACRUM COCCYX from 05/25/2008 CR LUMBAR SPINE COMPLETE from 05/25/2008 CT ABD PELVIS WITH CONTRAST from 05/02/2010 FINDINGS: BONES: No fracture or destructive lesion. Vertebral bodies are unremarkable. There are degenerative changes of the facets at L4-5 and L5-S1. There are degenerative changes seen in the sacroiliac joints. DISKS: Intervertebral disc spaces are maintained. ALIGNMENT: There is grade 1 spondylolisthesis of L5 on S1. SOFT TISSUE: Normal. IMPRESSION: 1. Degenerative facet arthropathy at L4-5 and L5-S1. 2. Grade 1 spondylolisthesis of L5 on S1. DATA REPOSITORY: RADIATION DOSE DELIVERED:
== END ==
LOC: DI 01:24
PROVIDERS: PCP Nurse Practitioner Family; Visit Provider Nurse Practitioner Family
DX: M47.27 Other spondylosis with radiculopathy, lumbosacral region (principal)
CPT/HCPCS: 72110